=== PATIENT | female | born 1965 | race Caucasian/White ===

== ENCOUNTER 2016-11-29 11:48 | Observation (INO) | payer OTHER ==
[2016-11-29] MEDS ORDERED: PHENAZOPYRIDINE HCL 200 MG TAB PO ONE (13:00)
[2016-11-29] MEDS ORDERED: CLINDAMYCIN 900 MG/DEXTROSE 50 ML IV ONE (13:00)
[2016-11-29] MEDS ORDERED: levOFLOXACIN 500 MG/DEXTROSE 100 ML IV ONE (13:00)
[2016-11-29] MEDS ORDERED: BUPIVACAINE/EPI 0.5% 30 ML SDV ONE (13:21)
[2016-11-29] MEDS ORDERED: SKIN ADHESIVE (DERMABOND) 1 EACH TP ONE (13:21)
[2016-11-29] MEDS ORDERED: MIDAZOLAM 2 MG/2 ML VIAL ONE (15:13)
[2016-11-29] MEDS ORDERED: PROPOFOL/EMULSION 500 MG/50 ML BOTTLE IV ONE (15:16)
[2016-11-29] MEDS ORDERED: fentaNYL 250 MCG/5 ML INJ ONE (15:16)
[2016-11-29] MEDS ORDERED: ROCURONIUM 50 MG/5 ML VIAL ONE ×2 (15:17→16:29)
[2016-11-29] MEDS ORDERED: DEXAMETHASONE 4 MG/ML VIAL ONE (15:22)
[2016-11-29] MEDS ORDERED: ONDANSETRON 4 MG/2 ML VIAL ONE (15:22)
[2016-11-29] MEDS ORDERED: HYDROmorphONE/DILAUDID 1 MG/ML SYR IVP PRN (15:34)
[2016-11-29] MEDS ORDERED: OXYCODONE/APAP 5/325 TAB PO PRN (15:34)
[2016-11-29] MEDS ORDERED: ONDANSETRON 4 MG/2 ML VIAL IVP PRN (15:34)
--- NOTE | 2016-11-29 15:34 | POSTOPPROG ---
Post Op Note Date of Operation: 11/29/16 Surgeon: Mark Fuentes Computer Discovery Teacher: Fang Roger Anesthesia: GET(General Endotracheal) Pre-op Diagnosis: Uterine fibroids, pelvic pain, uterine prolapse Post-op Diagnosis: Same Procedure: Robotic hyst, US Lig colpopexy, cysto Findings: fibroid uterus, both ureters function at end of case Inf/Abcess present in the surg proc area at time of surgery?: No EBL: Minimal Complications: None Specimen(s): Uterus, bilat tubes, fibroids
[2016-11-29] MEDS ORDERED: LR 1,000 ML IV SCH (16:00)
[2016-11-29] MEDS ORDERED: KETOROLAC 30 MG/1 ML SDV ONE (17:23)
[2016-11-29] MEDS ORDERED: SUGAMMADEX SODIUM 200 MG/2 ML VIAL IVP ONE (17:26)
[2016-11-29] MEDS ORDERED: fentaNYL 100 MCG/2 ML INJ ONE (17:36)
[2016-11-29] MEDS ORDERED: LORazepam 1 MG TAB ONE (18:18)
[2016-11-29] MEDS ORDERED: LORazepam 0.5 MG TAB PO PRN (18:19)
--- NOTE | 2016-11-29 19:30 | GOP ---
[f rep st] OPERATIVE REPORT DATE OF OPERATION: 11/29/2016 SURGEON: Mark Fuentes MD DIRECTOR OF SAFETY: Fang Roger CFA ANESTHESIA: General. PREOPERATIVE DIAGNOSIS: 1. Symptomatic uterine fibroids. 2. Uterine prolapse. POSTOPERATIVE DIAGNOSIS: 1. Symptomatic uterine fibroids. 2. Uterine prolapse. PROCEDURES PERFORMED: 1. Robotic-assisted laparoscopic hysterectomy, bilateral salpingectomy. 2. Bilateral uterosacral ligament colpopexy. 3. Bilateral ureterolysis. 4. Cystoscopy. FINDINGS: SPECIMENS: A 665 g fibroid uterus and tubes. ESTIMATED BLOOD LOSS: 30 mL. COMPLICATIONS: None. DISPOSITION: Patient stable to PACU. DESCRIPTION OF PROCEDURE: Jennifer was taken to the operating room, where she was identified. General anesthesia was administered and found to be adequate. She was placed in the lithotomy position and prepared and draped in normal sterile fashion. A LP33.[id number] uterine manipulator was placed into the endometrial cavity. A Vergara catheter was then placed. A 1 cm transverse incision was made along the superior margin of the umbilicus. The Veress needle with CO2 gas flowing was advanced into the peritoneal cavity. The abdomen was then insufflated with carbon dioxide gas. The 12 mm trocar followed by the laparoscope were then inserted. The upper abdomen was unremarkable. A uniformly enlarged uterus was seen. The ovaries were unremarkable. Two lateral ports were placed, one on the right and one on the left under direct visualization. The patient was then placed in Trendelenburg position and the da Laura robot docked on the left side. The instruments were then placed into the abdominal cavity under direct visualization. The left fallopian tube was along the mesosalpinx. The utero-ovarian ligament followed by the round ligament were then cauterized and transected. The anterior leaf of the broad ligament was then incised over the left uterine vessels down to the level of the cervix. The fibroids extended into the lower uterine segment. As a result, the ureters were immediately adjacent to the cervix. As a result, a bilateral ureterolysis was required so the uterine vasculature could be safely transected without injuring the ureters. The retroperitoneum had already been entered. The ureter was dissected free from the pelvic brim beyond where it crossed underneath the left uterine artery. The uterine artery was then coagulated and transected just above the ureter. The remaining vasculature was then cauterized and transected. The bladder flap was then created sharply. The exact same procedure was performed on the patient 's right side. She also required a right ureterolysis from the pelvic brim down to beyond where the ureter crossed underneath the right uterine artery. The uterine vasculature was then cauterized and transected. The uterus and upper 2/3 of the cervix were amputated from the lower 3rd of the cervix with a hot antonietta. The specimen was left in the upper abdomen for later removal. The cervical stump was then closed with a running suture of 0 V-Loc 180. A bilateral uterosacral ligament colpopexy was performed by attaching the lateral aspects of the cervix to the ipsilateral uterosacral ligaments near their insertion into the coccygeal-sacrospinous ligament complexes. The pelvis was then irrigated with sterile saline and hemostasis was present. The robot was then undocked. Cystoscopy was performed. Both ureters had vigorous jets of urine. No evidence of bladder nor urethral injury was seen. The umbilical incision was then extended to 2.5 cm. The Dorian tissue extraction bag was placed through the incision into the pelvis. The abdomen was then re-insufflated with carbon dioxide gas. The uterus was then maneuvered into the bag. The mouth of the gag was then pulled out through the umbilicus. The skin protector was placed. A scalpel with a 10 blade was used to remove the uterus from the bag in approximately 4 long strips. The bag was then removed. There was no evidence of bag puncture seen. The fascia was then closed with 0 Vicryl. The abdomen was re-insufflated with carbon dioxide gas. The bowel vasculature and abdominal contents were examined and no evidence of injury had occurred. The incisions were then closed with 4-0 Monocryl and surgical adhesive. Anesthesia was reversed. The patient was taken to the PACU , awake, in stable condition. /[id number]/MODL MTDD
[2016-11-29] MEDS: HYDROCODONE/APAP 5/325 TAB PO PRN ×2 (20:40→21:12)
[2016-11-29] MEDS: KETOROLAC 30 MG/1 ML SDV IVP SCH ×2 (21:36→23:05)
[2016-11-30] MEDS: HYDROCODONE/APAP 5/325 TAB PO PRN ×4 (00:15→12:49)
[2016-11-30] MEDS: KETOROLAC 30 MG/1 ML SDV IVP SCH ×2 (05:02→11:23)
[2016-11-30 06:34] LABS: HEMATOCRIT 35.9 % (38.0-47.0); HEMOGLOBIN 12.4 g/dL (12.6-16.3)
[2016-11-30 07:56] VITALS: TEMP 97.9
[2016-11-30] MEDS ORDERED: FLU VACC QS 2016-17(3-64YR)/PF 0.5 ML SYR (FLUARIX QUAD) IM ONE (11:23)
[2016-11-30 11:41] VITALS: BP 102/64; PULSE 84; RESP 17; O2SAT 95
--- NOTE | 2016-11-30 11:43 | GDS ---
[f rep st] DISCHARGE SUMMARY DISCHARGE DIAGNOSES: 1. Symptomatic uterine fibroids. 2. Uterine prolapse. PROCEDURES: 1. Robotic-assisted laparoscopic hysterectomy, bilateral salpingectomy. 2. Bilateral uterosacral ligament colpopexy. 3. Bilateral ureterolysis. 4. Cystoscopy. HISTORY: The patient is a 51-year-old female with symptomatic uterine fibroids. She was taken to [facility] operating room on 11/29/2016 where she underwent the above-mentioned procedures without complicat ions. Her postoperative course was uneventful. The morning after surgery, she was ambulating, void ing, tolerating a general diet. She was discharged home on postoperative day #1 in good condition. Medications included [place] and ibuprofen for pain. She is to follow up in the office 2 weeks after discharge. /[id number]/MODL
== END 2016-11-30 13:00 | disposition home or self-care (01) ==
LOC: F3E 11:48 → FOB 20:24
PROVIDERS: ADMIT Obstetrics & Gynecology; ATTEND Obstetrics & Gynecology
PROC: 0UT94ZZ Resection of Uterus, Percutaneous Endoscopic Approach (ICD-10-PCS; principal; 2016-11-29 13:15)
PROC: 0UT74ZZ Resection of Bilateral Fallopian Tubes, Percutaneous Endoscopic Approach (ICD-10-PCS; 2016-11-29 13:15)
PROC: 0UUG4JZ Supplement Vagina with Synthetic Substitute, Percutaneous Endoscopic Approach (ICD-10-PCS; 2016-11-29 13:15)
DX: D25.9 Leiomyoma of uterus, unspecified (principal); N81.4 Uterovaginal prolapse, unspecified; N39.3 Stress incontinence (female) (male); N92.0 Excessive and frequent menstruation with regular cycle; Z23 Encounter for immunization
CPT/HCPCS: 57425; 58544; 90471; G0378; G0008; J1100; J1885; J1956; J2250; J2405; J2704; J3010

== ENCOUNTER → 2017-09-18 | Outpatient (CLI) | payer BC | LOC: BMCIMAGING 11:44 | PROVIDERS: ATTEND Podiatrist Foot & Ankle Surgery | DX: M77.31 Calcaneal spur, right foot (principal) ==